=== PATIENT | male | born 1985 | race Caucasian/White ===

== ENCOUNTER → 2018-08-28 | Outpatient (CLI) | payer OTHER | LOC: CARD 12:12 | PROVIDERS: ATTEND Nurse Practitioner Family | DX: I27.29 Other secondary pulmonary hypertension (principal); Q21.0 Ventricular septal defect; I11.9 Hypertensive heart disease without heart failure | CPT/HCPCS: 93306 ==

== ENCOUNTER 2018-11-24 06:54 | Day surgery (SDC) | payer OTHER ==
[~2018-11-24] VITALS: Ht 175.3 cm; Wt 114.3 kg
[2018-11-24] VITALS (12 sets, daily range): BP systolic 123–160; BP diastolic 73–92
[2018-11-24] MEDS ORDERED: NS IV 1000 ML 1,000 ML IV SCH ×2 (07:00→10:08)
[2018-11-24] MEDS ORDERED: HEParin (CATH LAB) 2,000 ML IV ONE (07:02)
[2018-11-24] MEDS ORDERED: NS IV 1000 ML 1,000 ML ONE (07:02)
[2018-11-24] MEDS ORDERED: LIDOCAINE 1% INJ 20 ML 20 ML VIAL ONE ×3 (07:02→09:10)
[2018-11-24] MEDS ORDERED: OMEG10005 PO (07:25)
[2018-11-24] MEDS ORDERED: LISI10TA2 PO (07:25)
[2018-11-24 07:30] LABS: HEMOGLOBIN 15.5 G/DL (13.3-17.7); MEAN PLATELET VOLUME 9.4 FL (7.4-10.4); RED CELL DISTRIBUTION WIDTH 12.8 % (10.0-14.5); WHITE BLOOD COUNT 4.9 10^3/uL (4.3-11.0)
[2018-11-24 07:38] LABS: PROTHROMBIN TIME PATIENT 13.4 SEC (12.2-14.7)
[2018-11-24 07:47] LABS: ALANINE AMINOTRANSFERASE 40 U/L (0-55); ALBUMIN 4.5 GM/DL (3.2-4.5); ALKALINE PHOSPHATASE 87 U/L (40-136); BILIRUBIN,TOTAL 0.5 MG/DL (0.1-1.0); BUN/CREATININE RATIO 16; CALCIUM 9.4 MG/DL (8.5-10.1); CARBON DIOXIDE 25 MMOL/L (21-32); CHLORIDE 110 MMOL/L (98-107); CHOLESTEROL 163 MG/DL (< 200); CREATININE SERUM 0.96 MG/DL (0.60-1.30); GFR ESTIMATED > 60; GLUCOSE 119 MG/DL (70-105); HDL CHOLESTEROL 22 MG/DL (40-60); POTASSIUM 4.2 MMOL/L (3.6-5.0); SODIUM 143 MMOL/L (135-145); TOTAL PROTEIN 7.6 GM/DL (6.4-8.2); TRIGLYCERIDES 381 MG/DL (<150); VLDL CHOLESTEROL 76 MG/DL (5-40)
[2018-11-24] MEDS ORDERED: fentaNYL INJECTION 100 MCG/2 ML AMP ONE ×2 (07:55→09:07)
[2018-11-24] MEDS ORDERED: MIDAZOLAM 5 MG/5 ML (VERSED) VIAL ONE (07:55)
--- NOTE | 2018-11-24 10:07 | Cardiac Procedure Note-CS/ASA ---
Pre-Procedure Note Pre-Op Procedure Note H&P Reviewed The H&P was reviewed, patient examined and no changes noted. Date H&P Reviewed: Nov 24, 2018 Time H&P Reviewed: 08:40 Conscious Sedation Pre-Proced Time 08:40 ASA Score 2 For ASA 3 and 4: Consider anesthesia and medical clearance. Also, for patients with a history of failed moderate sedation consider anesthesia. Airway Lungs Heart ASA score ASA 1: a normal healthy patient ASA 2: a patient with a mild systemic disease (mid diabetes, controlled hypertension, obesity ASA 3: a patient with a severe systemic disease that limits activity (angina, COPD, prior Myocardial infarction) ASA 4: a patient with an incapacitating disease that is a constant threat to life (CHF, renal failure) ASA 5: a moribund patient not expected to survive 24 hrs. (ruptured aneurysm) ASA 6: a declared brain- patient whose organs are being harvested. For emergent operations, add the letter E after the classification Mallampati Classification Grade 2 Sedation Plan Analgesia, Amnesia, Plan communicated to team members, Discussed options with patient/fam, Discussed risks with patient/fam The patient is an appropriate candidate to undergo the planned procedure, sedation, and anesthesia. The patient immediately re-assessed prior to indication. DENNIS VILLASEÑOR MD FACP FAC CCDS Nov 24, 2018 10:07
--- NOTE | 2018-11-24 10:10 | Discharge Inst-Cardiology ---
Discharge Inst-Cardiac Discharge Medications Continued Medications: Lisinopril (Lisinopril) 10 Mg Tablet 10 MG PO DAILY, TAB Marcellus-3 Fatty Acids (Marcellus-3) 1,000 Mg Capsule 2000 MG PO, DENNIS MATTHEWS MD [facility] CCDS Nov 24, 2018 10:10
--- NOTE | 2018-11-24 10:11 | Discharge Inst-Post CATH ---
Discharge Inst-CATH/EP Post Cardiac Cath/EP D/C Inst Follow Up/Plan F/u with Dr Vila in 2 weeks ACTIVITY * Go Home directly and rest. * Limit activity of the leg (or wrist if it was used) for 7 days including aerobics, swimming, jogging, bicycling, etc. * Restrict stair-climbing for 7 days if possible, if not, climb up with your n on-cath leg, then bring together on the same step. * Avoid lifting, pushing, pulling or excessive movement of the affected ex tremity for 7 days. * Customary sexual activity may be resumed after 2 days-use caution not to use a position that strains or causes pain to the affected extremity. * No driving for 24 hours. * NO SMOKING. * Avoid straining for bowel movements for 7 days. * Gentle walking on level ground is allowed. * Returning to work will depend on the type of procedure and the results. Your doctor will discuss this with you. CALL YOUR DOCTOR FOR ANY OF THE FOLLOWING: *If bleeding from the puncture site occurs- Apply gentle pressure to site with clean cloth and call your doctor or EMS. * If a knot or lump forms under the skin, increases in size, or causes pain. * If bruising appears to be worsening or moving further down your leg instead of disappearing. * Temperature above 101 F. CARE OF YOUR GROIN INCISION; * Bruising or purple discoloration of the skin near the puncture site is common. * You may shower only, no bathtub bathing for 5 days. Be careful to avoid slipping as your leg may feel stiff. * If a closure device was used on your femoral artery, please see the attached guide regarding care of the device and your leg. * Leave dressing on FOR 24 hours. CARE OF YOUR WRIST INCISION; * Bruising or purple discoloration of the skin near the puncture site is common. * You may shower. * DO NOT submerge wrist. * Leave dressing on FOR 24 hours. DENNIS VILA MD FAC FAC CCDS Nov 24, 2018 10:11
[2018-11-24] MEDS ORDERED: PATIENT MAY USE OWN MEDS, ALL PO SCH (10:15)
--- NOTE | 2018-11-24 12:52 | CARDIAC CATHETERIZATION ---
DATE OF SERVICE: 11/24/2018 CARDIAC CATHETERIZATION REPORT The patient is a 32-year-old man with a history of membranous ventricular septal defect. Echocardiography carried out recently had shown the ventricular septal defect and the pulmonary artery systolic pressure was estimated to be 50 mmHg. Accordingly, this was felt to be a significant shunt and we carried out cardiac catheterization today for further evaluation after having obtained an informed consent. Complete heart catheterization was carried out. PROCEDURe: He was brought to the cardiac catheterization laboratory in a fasting state. Right groin was prepared and draped in the usual sterile fashion. Lidocaine 1% was used for local anesthesia. Modified Seldinger technique was used to advance a 5-Italian sheath in the right femoral artery and a 7-Italian sheath in the right femoral vein. We used a 7-Italian Oberlin-Bret catheter to carry out right heart catheterization and to measure oxygen saturation in the right atrium, right ventricle, pulmonary artery, femoral artery, left ventricle. We measured pressures in the various heart chambers. The Oberlin-Bret catheter was then removed. Pigtail catheter was used to carry out left heart catheterization and to obtain left ventricular blood for measurement of oxygenation. We carried out left ventricular angiography in the BURR projection and the left anterior oblique projection. The pigtail catheter was then pulled back to the aortic arch and aortic arch angiography was performed. Pigtail was removed. Angiography of the right femoral artery was carried out through the sheath. Mynx was used to achieve hemostasis for the arterial sheath. Manual pressure was used to achieve hemostasis for the venous sheath. He tolerated the procedure well. HEMODYNAMICS: Right atrial mean pressure was 2 mmHg. Right ventricular pressure was 31/5. Pulmonary artery pressure was 27/11 with a mean of 17 mmHg. Mean pulmonary capillary wedge pressure was 11 mmHg. Left ventricular end-diastolic pressure was 12 mmHg. There was no significant pressure gradient on pullback across the aortic valve. Ascending aortic pressure was 138/76 with a mean of 102 mmHg. Gris cardiac output was 5.46 and Gris cardiac index was 2.4. Pulmonary vascular resistance was 1.29 Wood units. Oxygen saturation in the right atrium was 72.7. Oxygenation in the right ventricle was 72.7. Oxygenation in the pulmonary artery was 75. Oxygenation in the left ventricle was 99%. Based on all these measurements, there does not appear to be significant intracardiac shunt. CORONARY ANGIOGRAPHY: Left main coronary artery, left anterior descending artery, left circumflex artery, right coronary artery are all free of angiographically significant disease. Right coronary artery is dominant. LEFT VENTRICULAR ANGIOGRAPHY: Left ventricular angiography was carried out in the right anterior oblique and the left anterior oblique projections. Global left ventricular systolic function is normal. No regional wall motion abnormality is seen. Left ventricular ejection fraction is 60 to 65%. There did not appear to be significant shunt from the left ventricle to the right ventricle on the left anterior oblique views. AORTIC ARCH ANGIOGRAPHY: Aortic arch angiography did not indicate any significant thoracic aortic aneurysm or dissection. The neck arteries, to the extent visualized, do not exhibit significant obstructive disease. CONCLUSIONS: 1. This study did not show significant intracardiac shunt. The patient is known to have small perimembranous ventricular septal defect. 2. Normal pulmonary artery pressures and pulmonary vascular resistance. 3. No angiographically significant coronary artery disease. 4. Normal global left ventricular systolic function with an ejection fraction of 60 to 65%. 5. Normal left ventricular end-diastolic pressure. DISCUSSION AND RECOMMENDATIONS: Based on the results of the study, the patient's small congenital ventricular septal defect does not appear to require intervention at this time. Continuing outpatient followup is advised. Job ID: [id number] DocumentID: [id number] Dictated Date: 11/24/2018 10:21:32 [employer]ic Date: 11/24/2018 12:51:19 Dictated By: DENNIS VILLASEÑOR MD, MA, FACP, FACC, MTDD
--- NOTE | 2018-11-24 13:00 | NUR ---
PATIENT NAUSEATED AT THIS TIME AND AND MILDLY SWEATY, PATIENT BACK TO BED WITH COLD WASHCLOTH ON FOREHEAD AND NECK. PATIENT GIVEN WATER AND CRACKERS TO EAT ON. PATIENT REFUSED SANDWICH OR ANYTHING OTHER TO DRINK. AT 1415 PATIENT FEELING BETTER WITH NOT NAUSEA, SAT ON SIDE OF BED AND STOOD WITH NO COMPLAINTS. PATIENT TO DISCHARGE AT 1445
== END 2018-11-24 14:45 | disposition home or self-care (01) ==
LOC: CATH 06:54 → SDC 10:40 → CATH 14:45
PROVIDERS: ATTEND Internal Medicine Cardiovascular Disease
DX: I10 Essential (primary) hypertension (principal); E66.9 Obesity, unspecified; Z68.37 Body mass index [BMI] 37.0-37.9, adult; Z79.899 Other long term (current) drug therapy
CPT/HCPCS: 36221; 36415; 80053; 80061; 85027; 85610; 85730; 87081; 93005; 93460